=== PATIENT | female | born 1945 | race Caucasian/White ===

== ENCOUNTER 2023-04-18 14:48 | Emergency (ER) | payer MEDICARE, BC ==
[~2023-04-18] VITALS: Ht 304.8 cm; Wt 49.1 kg
[~2023-04-18 14:48] MED LIST: ASPI81TA52 PO
--- NOTE | 2023-04-18 16:18 | NUR ---
Put pt on bedpan to get urine, pt was unable to urinate.
[2023-04-18 16:29] LABS: BASOPHILS # (AUTO) 0.1 X10'3 (0-0.2); BASOPHILS % (AUTO) 0.7 % (0-1); EOSINOPHILS # (AUTO) 0.5 X10'3 (0-0.9); EOSINOPHILS % (AUTO) 4.9 % (0-6); HEMATOCRIT 37.6 % (35.0-45.0); HEMOGLOBIN 12.5 g/dl (12.0-16.0); LYMPHOCYTES # (AUTO) 0.6 X10'3 (1.1-4.8); LYMPHOCYTES % (AUTO) 6.2 % (21-51); MEAN CORPUSCULAR HEMOGLOBIN 31.6 PG (27.0-31.0); MEAN CORPUSCULAR HGB CONC 33.3 g/dL (33.0-36.5); MEAN CORPUSCULAR VOLUME 94.8 FL (78-98); MEAN PLATELET VOLUME 8.8 FL (7.4-10.4); MONOCYTES # (AUTO) 0.9 X10'3 (0-0.9); MONOCYTES % (AUTO) 9.2 % (2-12); NEUTROPHILS # (AUTO) 8.1 X10'3 (1.8-7.7); PLATELET COUNT 401 X10'3 (140-440); RED BLOOD COUNT 3.96 X10'6 (4.20-5.60); RED CELL DISTRIBUTION WIDTH 13.6 % (11.5-14.5); WHITE BLOOD COUNT 10.3 X10'3 (4.5-11.0)
[2023-04-18 16:44] LABS: ALANINE AMINOTRANSFERASE 25 U/L (12-78); ALBUMIN 2.8 G/DL (3.4-5.0); ALBUMIN/GLOBULIN RATIO 0.5 (1.1-1.5); ALKALINE PHOSPHATASE 85 IU/L (46-116); ANION GAP 9 (8-16); ASPARTATE AMINO TRANSFERASE 30 U/L (10-37); BILIRUBIN,TOTAL 0.6 MG/DL (0.1-1.0); BLOOD UREA NITROGEN 40 MG/DL (7-18); BUN/CREATININE RATIO 34.2 (10.0-20.0); CALCIUM 9.6 MG/DL (8.5-10.1); CHLORIDE 101 MMOL/L (99-107); CREATININE 1.17 MG/DL (0.40-0.90); GLUCOSE 108 MG/DL (70-104); POTASSIUM 3.6 MMOL/L (3.5-5.1); SODIUM 141 MMOL/L (135-145); TOTAL CARBON DIOXIDE 30.9 MMOL/L (24-32); eGFR 45 ML/MIN
[2023-04-18 16:56] LABS: ETHANOL < 0.010 GM/DL (0.0-0.010)
[2023-04-18] MEDS ORDERED: normal saline 1000ml 1,000 ML IV ONE (17:10)
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
--- NOTE | 2023-04-18 18:30 | NUR ---
Received report from Kenisha Temple RN, assumed care of patient.
[2023-04-18] MEDS ORDERED: ACET-1008 PO (18:56)
[2023-04-18] MEDS ORDERED: MELA3TAB39 PO (18:56)
[2023-04-18] MEDS ORDERED: LISI20TA28 PO (18:56)
[2023-04-18] MEDS ORDERED: CARV-49 PO (18:56)
[2023-04-18] MEDS ORDERED: DICL20GE TP (18:56)
[2023-04-18] MEDS ORDERED: CLOP-32 PO (18:56)
[2023-04-18] MEDS ORDERED: HYDR-3973 PO (18:56)
[2023-04-18] MEDS ORDERED: ATOR80TA PO (18:56)
[2023-04-18] MEDS ORDERED: MULT-1085 PO (18:56)
[2023-04-18] MEDS ORDERED: IPRA3AMP31 IH (18:56)
[2023-04-18] MEDS ORDERED: AMLO10TA4 PO (18:56)
[2023-04-18] MEDS ORDERED: HYDR-3965 PO (18:56)
[2023-04-18] MEDS ORDERED: DOCU-148 PO (18:56)
[2023-04-18] MEDS ORDERED: ALLO100T PO (18:56)
--- NOTE | 2023-04-18 19:31 | NUR ---
Pts admission and med rec completed. Pt has no complaints at this time, but she continues to report thoughts of suicide. She states she does not want to live in her current state (s/p CVA with deficits) as she feels she will be a burden to others.
[2023-04-18] MEDS ORDERED: ipratropium/albuterol 3ml nebule IH PRN (20:05)
[2023-04-18] MEDS ORDERED: HYDROcodone/acetaminophen 5mg/325mg tablet PO PRN (20:05)
[2023-04-18] MEDS ORDERED: HYDROcodone/acetaminophen 10/325mg tab PO PRN (20:05)
[2023-04-18] MEDS ORDERED: acetaminophen 325mg tablet PO PRN (20:05)
[2023-04-18] MEDS ORDERED: DICLOFENAC SODIUM 1% gel 1 APPLIC APPLIC TP PRN (20:05)
[2023-04-18] MEDS ORDERED: carvedilol 6.25mg tablet PO ONE (20:30)
[2023-04-18] MEDS ORDERED: docusate sod 100mg capsule PO ONE (20:30)
[2023-04-18] MEDS ORDERED: Melatonin 3mg tablet PO SCH (21:00)
[2023-04-18] MEDS ORDERED: atorvastatin 20mg tablet PO SCH (21:00)
--- NOTE | 2023-04-18 21:11 | NUR ---
Pts evening meds were adminstered, she is resting without any signs of distress.
--- NOTE | 2023-04-18 22:37 | NUR ---
Packet was sent to [facility] tad office, U/A is still pending.
--- NOTE | 2023-04-19 00:02 | NUR ---
Pt sleeping, respirations even and unlabored, no signs of distress.
[2023-04-19 00:50] LABS: CLARITY,URINE SLIGHTLY CLOUDY (Clear); COLOR,URINE YELLOW (Yellow); GLUCOSE, URINE NEGATIVE (Neg); KETONES,URINE TRACE mg/dl (Neg); LEUKOCYTE ESTERASE ,URINE SMALL (Neg); NITRITES, URINE NEGATIVE (Neg); OCCULT BLOOD,URINE NEGATIVE (Neg); PH,URINE 5.5 (4.8-8.0); PROTEIN,URINE NEGATIVE (Neg)
[2023-04-19 00:58] LABS: UA COLLECTION TYPE CLN CATCH MIDSTREAM
[2023-04-19 00:59] LABS: SQUAMOUS EPITHELIAL CELL,UR MANY /LPF (FEW); WBC,URINE 30-50 /HPF (0-4)
[2023-04-19 01:00] LABS: BACTERIA,URINE 1+ /HPF (Neg)
[2023-04-19 01:17] LABS: URINE AMPHETAMINE SCREEN NEGATIVE (Neg); URINE BARBITUATE SCREEN NEGATIVE (Neg); URINE BENZODIAZEPINES SCREEN NEGATIVE (Neg); URINE CANNABINOID SCREEN NEGATIVE (Neg); URINE COCAINE SCREEN NEGATIVE (Neg); URINE METHADONE SCREEN NEGATIVE (Neg); URINE OPIATE SCREEN NEGATIVE (Neg); URINE PHENCYCLIDINE SCREEN NEGATIVE (Neg)
--- NOTE | 2023-04-19 02:45 | NUR ---
Pt continues to sleep without issues, awoke once to use bedpan and provided urine sample.
--- NOTE | 2023-04-19 04:57 | NUR ---
Pt sleeping, respirations are even and unlabored, no signs of distress.
--- NOTE | 2023-04-19 06:45 | NUR ---
Received report from ROMULO fraser. Pt sleeping on her backside with noted rise and fall of chest.
[2023-04-19] MEDS ORDERED: aspirin 81mg, enteric-coated 1 TAB TABLET.DR PO SCH (08:00)
[2023-04-19] MEDS ORDERED: docusate sod 100mg capsule PO SCH (08:00)
[2023-04-19] MEDS ORDERED: lisinopril 20mg tablet PO SCH (08:00)
[2023-04-19] MEDS ORDERED: multivitamins, therapeutics tablet PO SCH (08:00)
[2023-04-19] MEDS ORDERED: amLODIPine 5mg tablet PO SCH (08:00)
[2023-04-19] MEDS ORDERED: carvedilol 6.25mg tablet PO SCH (08:00)
[2023-04-19] MEDS ORDERED: allopurinol 100mg tablet PO SCH (08:00)
[2023-04-19] MEDS ORDERED: clopidogrel 75mg tablet PO SCH (08:00)
--- NOTE | 2023-04-19 08:04 | NUR ---
Pt incontinent of urine, tech changed and cleaned pt. Pt thanked tech for her help.
--- NOTE | 2023-04-19 08:15 | NUR ---
Pt eating breakfast at bedside.
[2023-04-19 08:19] LABS: ALBUMIN 2.2 G/DL (3.4-5.0); ANION GAP 11 (8-16); BLOOD UREA NITROGEN 35 MG/DL (7-18); BUN/CREATININE RATIO 36.8 (10.0-20.0); CHLORIDE 104 MMOL/L (99-107); CREATININE 0.95 MG/DL (0.40-0.90); GLUCOSE 85 MG/DL (70-104); POTASSIUM 3.8 MMOL/L (3.5-5.1); SODIUM 141 MMOL/L (135-145); TOTAL CARBON DIOXIDE 25.8 MMOL/L (24-32); eGFR 57 ML/MIN
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
--- NOTE | 2023-04-19 09:43 | NUR ---
Pt incontinent of bowels, pt cleaned and barrier cream applied. Pt turned on right side.
--- NOTE | 2023-04-19 10:56 | NUR ---
Pt. repositioned to right side and had another BM. Pt is in no acute distress.
--- NOTE | 2023-04-19 11:42 | NUR ---
Pt sleeping with noted rise and fall of chest. No acute distress noted.
--- NOTE | 2023-04-19 13:15 | NUR ---
Pt sleeping with noted rise and fall of chest.
--- NOTE | 2023-04-19 13:37 | NUR ---
Pt refused lunch. Pt. incontinent of urine. Pt repositioned onto backside. Resting with eyes closed now. Noted rise and fall of chest.
--- NOTE | 2023-04-19 14:55 | NUR ---
Pt lying on her backside with eyes open. No distress noted.
--- NOTE | 2023-04-19 15:45 | NUR ---
visiting at bedside. No distress noted.
--- NOTE | 2023-04-19 16:15 | NUR ---
Pt hold not upheld, pt being discharged back to [facility] at approx. 1930 via [facility].
[2023-04-19] MEDS ORDERED: FOSFOMYCIN TROMETHAMINE 3 GM PACKET PO ONE (16:50)
[2023-04-19] MEDS ORDERED: CefTRIAXone/D5W-Rocephin 1gm 50 ML IV ONE (16:55)
--- NOTE | 2023-04-19 17:37 | NUR ---
started pt. on IV rocephin and PO fosfomycin for a UTI. IV antibitic running now. Pt awake and in no acute distress.
[2023-04-19 17:38] VITALS: BP 146/67
== END 2023-04-19 19:13 ==
LOC: ER 14:49
DX: R45.851 Suicidal ideations (principal); Z20.822 Contact with and (suspected) exposure to COVID-19; Z79.899 Other long term (current) drug therapy; Z79.82 Long term (current) use of aspirin
CPT/HCPCS: 36415; 80048; 80053; 80305; 80320; 81001; 84443; 85025; 87811; 96365; 99285; J0696; J7030; 94760; A6449